=== PATIENT | female | born 1980 | race Caucasian/White ===

== ENCOUNTER 2021-02-23 12:42 | Emergency (ER) | payer BC ==
[2021-02-23 14:04] LABS: HEMOGLOBIN 14.8 gm/dl (12.3-15.3); RED BLOOD COUNT 4.56 M/UL (4.00-5.10); WHITE BLOOD COUNT 11.9 K/UL (4.5-11.0)
[2021-02-23 14:25] LABS: BUN/CREATININE RATIO 9 (0-10)
== END 2021-02-23 17:40 | disposition home or self-care (01) ==
LOC: ER1 12:42
PROVIDERS: Physician Assistant Medical
DX: R00.2 Palpitations (principal); Z20.822 Contact with and (suspected) exposure to COVID-19; Z90.49 Acquired absence of other specified parts of digestive tract
CPT/HCPCS: 71045; 80053; 81001; 82550; 82553; 83605; 83874; 84439; 84443; 84484; 85025; 87040; 87086; 99285; U0002